=== PATIENT | male | born 1945 | race Caucasian/White ===

== ENCOUNTER 2018-05-24 07:27 | Outpatient (CLI) | payer MEDICARE ==
--- NOTE | 2018-05-24 10:14 | CT ---
CT OF THE NECK WITH AND WITHOUT CONTRAST: DATE: 05/24/2018. COMPARISON: None. HISTORY: Diabetes, abnormal labs, elevated calcium levels. TECHNIQUE: Axial CT imaging is obtained at 2.5 mm intervals from the skull base through the lung apices with and without contrast using a parathyroid protocol. Coronal and sagittal reformatted imaging obtained. FINDINGS: Imaged lung apices are grossly unremarkable, slightly limited on the basis of motion artifact. The retroantral fat and parapharyngeal fat appears clear bilaterally. The submandibular glands and p arotid glands are unremarkable. Calcification of the region of the tonsillar pillar suggests prior inflammatory change. Epiglottis a nd preepiglottic fat appear grossly unremarkable. Hyoid bone, thyroid cartilage, cricoid cartilage, and thyroid gland appear grossly unremarkable. Calcified nodes are seen in the left suprahilar regio n and there is a calcified granuloma in the left upper lobe, evidence of prior granulomatous disease. Atherosclerotic calcification of aortic arch noted. There is calcified atherosclerotic plaque involving the distal right CCA ad the proximal right ICA. No discrete lymphadenopathy is noted within the neck. There is prominent degenerative change involving the glenohumeral joint and the acromioclavicular int erspace on the right with an incompletely assessed right shoulder joint effusion. Trace shoulder joint effusion also noted on the left. There is no convincing evidence for a definitive parathyroid adenoma. [facility] demonstrates questionable faint activity inferior to right thyroid lobe. No e nhancing lesion seen in this region. There is a nonenhancing subtle mass in this region best seen on coronal image 45 and axial image 33 precontrast/74 post contrast measuring 7-8mm which could potenti ally represent parathyroid adenoma. Review of the osseous structures demonstrates multilevel bilateral facet and uncovertebral osteophyte formation as well as multilevel disk space narrowing, degenerative change, and osteophytosis. IMPRESSION: No great candidate for parathyroid adenoma. Inferior to right lobe of thyroid gland there is a 8-9mm lesion which is of intermediate concern for parathyroid adenoma. Dr. Peralta evaluated this study and i s in agreement. POS: [facility]
[2018-05-24] MEDS ORDERED: Iopamidol 370 76% 50 ML VIAL FS ONE (11:22)
[2018-05-24] MEDS ORDERED: Iopamidol 370 76% 100 ML VIAL ONE (11:22)
--- NOTE | 2018-05-24 13:54 | NM ---
NUCLEAR MEDICINE THYROID SCAN: 05/24/2018 HISTORY: Hypercalcemia. Primary hyperparathyroidism. TECHNIQUE: Immediate and two hour delay imaging of the neck, in the frontal and bilateral oblique projections, o btained following the intravenous administration of 25 millicuries of technetium 99m labeled sestamib i. SPECT imaging of the neck obtained as well. FINDINGS: Immediate and delayed imaging demonstrate radiotracer activity within the salivary glands and region of the thyroid gland. Questionable faint area of increased radiotracer activity along inferior aspec t of right thyroid lobe noted on 1 hour delayed imaging. No correlate seen on SPECT. IMPRESSION: Faint focus of increased radiotracer activity along inferior aspect right lobe, significance uncertai n. Please see CT neck with parathyroid protocol for full discussion. This study evaluated in consul tation with Dr. Peralta POS: [facility]
== END 2018-05-24 07:28 | disposition home or self-care (01) ==
LOC: CT 07:27
PROVIDERS: ATTEND Otolaryngology Plastic Surgery within the Head & Neck
DX: E21.0 Primary hyperparathyroidism (principal); E07.89 Other specified disorders of thyroid
CPT/HCPCS: 70491; 78070; 82565; A9500